=== PATIENT | female | born 1995 | race Caucasian/White ===

== ENCOUNTER 2017-10-27 13:41 | Emergency (ER) | payer OTHER ==
[2017-10-27] MEDS: LORAZEPAM 1 MG TAB PO (17:18)
== END 2017-10-27 18:14 | disposition home or self-care (01) ==
LOC: FTE 13:41
DX: F41.9 Anxiety disorder, unspecified (principal)
CPT/HCPCS: 99283; Z7502

== ENCOUNTER 2017-12-22 20:54 | Emergency (ER) | payer OTHER | END 2017-12-22 21:26 | disposition home or self-care (01) | LOC: E/R 20:54 | DX: S80.261A Insect bite (nonvenomous), right knee, initial encounter (principal); W57.XXXA Bitten or stung by nonvenomous insect and other nonvenomous arthropods, initial encounter; Y92.9 Unspecified place or not applicable | CPT/HCPCS: 99284; Z7502 ==

== ENCOUNTER 2019-02-25 15:13 | Emergency (ER) | payer OTHER ==
[2019-02-25] MEDS: ACETAMINOPHEN 325 MG TAB PO (17:15)
[2019-02-25] MEDS: KETOROLAC 30 MG INJ IM (17:15)
[2019-02-25 17:18] LABS: ADD UMIC NO; UR ASCORBIC ACID NEGATIVE (NEGATIVE); UR BILIRUBIN (Dip) NEGATIVE (NEGATIVE); UR BLOOD (Dip) NEGATIVE (NEGATIVE); UR CLARITY CLEAR (CLEAR); UR COLOR YELLOW (YELLOW); UR GLUCOSE (Dip) NEGATIVE (NEGATIVE); UR KETONES (Dip) 1+ mg/dL (NEGATIVE); UR LEUKOCYTE ESTERASE (Dip) NEGATIVE Leu/ul (NEGATIVE); UR NITRITE (Dip) NEGATIVE (NEGATIVE); UR SPECIFIC GRAVITY (Dip) 1.013 (1.003-1.030); UR TOTAL PROTEIN (Dip) NEGATIVE (NEGATIVE); UR UROBILINOGEN (Dip) NEGATIVE (NEGATIVE)
== END 2019-02-25 18:01 | disposition home or self-care (01) ==
LOC: FTE 18:01
DX: M79.18 Myalgia, other site (principal)
CPT/HCPCS: 81003; 81025; 96372; 99284-25